=== PATIENT | male | born 1975 | race Caucasian/White ===

== ENCOUNTER 2020-08-31 05:59 | Day surgery (SDC) | payer OTHER ==
[~2020-08-31] VITALS: Ht 177.8 cm; Wt 106.0 kg
[2020-08-31] MEDS ORDERED: CHLORHEXIDINE 15 ML UDC MM ONE (06:30)
[2020-08-31] MEDS ORDERED: LACTATED RINGERS 1,000 ML IV SCH (06:30)
[2020-08-31] MEDS ORDERED: LIDOCAINE/PF 0.5% ,50ML ONE (06:44)
[2020-08-31] MEDS ORDERED: VANCOMYCIN 1,000 MG ONE (06:44)
[2020-08-31] MEDS ORDERED: BUPIVACAINE/PF 0.25% ONE (06:44)
[2020-08-31] MEDS ORDERED: AMLO-150 PO (06:45)
[2020-08-31] MEDS ORDERED: SERT100T PO (06:45)
[2020-08-31] MEDS ORDERED: BACITRACIN 50,000 UNIT ONE (06:45)
[2020-08-31] MEDS ORDERED: ATOR-2 PO (06:45)
[2020-08-31 06:47] VITALS: BP 135/90
[2020-08-31] MEDS ORDERED: CHLORHEXIDINE 15 ML UDC ONE (06:58)
[2020-08-31] MEDS ORDERED: PROPOFOL 50 ML ONE ×2 (07:23→08:32)
[2020-08-31] MEDS ORDERED: MIDAZOLAM 1 MG/ML, 2ML ONE (07:23)
[2020-08-31] MEDS ORDERED: FENTANYL PF 250 MCG/5ML ONE (07:24)
[2020-08-31] MEDS ORDERED: PROMETHAZINE 25 MG/ML, 1ML IVPush PRN (08:30)
[2020-08-31] MEDS ORDERED: OXYcodone 5 MG/5 ML ORAL.SOL UDC PO PRN (08:30)
[2020-08-31] MEDS ORDERED: FENTANYL PF 100 MCG/2ML IV PRN (08:30)
[2020-08-31] MEDS ORDERED: LABETALOL 5MG/ML, 20ML IV PRN (08:30)
[2020-08-31] MEDS ORDERED: DIPHENHYDRAMINE 50 MG/ML, 1ML IVPush PRN (08:30)
[2020-08-31] MEDS ORDERED: PROMETHAZINE 25 MG SUPP PR PRN (08:30)
[2020-08-31] MEDS ORDERED: MEPERIDINE/PF 25MG/0.5ML IVPush PRN (08:30)
[2020-08-31] MEDS ORDERED: morphine SULFATE 10 MG/ML, 1ML IVPush PRN (08:30)
[2020-08-31] MEDS ORDERED: DIAZEPAM 5 MG/ML, 2ML IVPush PRN (08:30)
[2020-08-31] MEDS ORDERED: EPHEDRINE 50 MG/ML, 1ML IM PRN (08:30)
[2020-08-31] MEDS ORDERED: EPHEDRINE 50 MG/ML, 1ML IVPush PRN (08:30)
[2020-08-31] MEDS ORDERED: ONDANSETRON 2MG/ML, 2ML IVPush PRN (08:30)
[2020-08-31] MEDS ORDERED: SUCCINYLCHOLINE 20 MG/ML, 10ML ONE (08:32)
[2020-08-31] MEDS ORDERED: DEXAMETHASONE 4 MG/ML, 1ML ONE ×2 (08:32)
[2020-08-31] MEDS ORDERED: ROCURONIUM 10MG/ML,5ML ONE (08:32)
[2020-08-31] MEDS ORDERED: ONDANSETRON 2MG/ML, 2ML ONE (08:32)
[2020-08-31] MEDS ORDERED: FENTANYL PF 100 MCG/2ML ONE (09:27)
[2020-08-31] MEDS ORDERED: OXYcodone 5 MG/5 ML ORAL.SOL UDC ONE (09:27)
[2020-08-31] MEDS ORDERED: HYDROmorphone 1 MG/ML, 1ML INJ ONE (09:27)
[2020-08-31] MEDS ORDERED: CEFAZOLIN 1,000 MG ONE (09:45)
[2020-08-31] MEDS ORDERED: KETOROLAC 30 MG/1 ML ONE (09:45)
[2020-08-31] MEDS ORDERED: ALBUTEROL HFA 90 MCG/SPRAY ONE (09:56)
[2020-08-31] MEDS ORDERED: MEPERIDINE/PF 25MG/ML,1ML ONE (09:59)
== END 2020-08-31 12:05 | disposition home or self-care (01) ==
LOC: OUT 05:59 → EDBD 07:30 → OUT 12:05
PROVIDERS: ATTEND Orthopaedic Surgery Orthopaedic Surgery of the Spine
DX: M51.16 Intervertebral disc disorders with radiculopathy, lumbar region (principal); Z20.828 Contact with and (suspected) exposure to other viral communicable diseases; M51.17 Intervertebral disc disorders with radiculopathy, lumbosacral region; M48.061 Spinal stenosis, lumbar region without neurogenic claudication; I20.9 Angina pectoris, unspecified; Z79.899 Other long term (current) drug therapy; Z98.890 Other specified postprocedural states
CPT/HCPCS: 63030; 72100; 87635; J0330; J0690; J1100; J1885; J2001; J2175; J2250; J2405; J2704; J3010; J3370; J7120